=== PATIENT | male | born 1990 | race Caucasian/White ===

== ENCOUNTER 2018-11-07 07:11 | Outpatient (CLI) | payer OTHER ==
--- NOTE | 2018-11-07 09:08 | MRI ---
MRI RIGHT KNEE PERFORMED WITHOUT CONTRAST ENHANCEMENT: HISTORY: Right knee pain for one year. No history of any recent trauma. 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 There is also some internal m ucoid degeneration near the femoral attachment of the posterior cruciate ligament. These changes wit h the posterior cruciate ligament are more prominent than on the prior exam. The lateral meniscus shows some increased signal change near the meniscal root. This is similar to t he previous exam, probably related to some fraying. On the medial side, the body of the medial meniscus is essentially absent. There is a triangular-sha ped density, which is directly superior to the root of the posterior horn of the medial meniscus. Th is appears to represent a displaced flap fragment, probably a flipped fragment that would related to the body of the meniscus. This has a fairly similar appearance to the previous exam. The medial as well as lateral collateral ligaments and iliotibial band regions are unremarkable. The patellar articular cartilage is intact. The medial and lateral patellar retinaculum and quadrice ps and patellar tendons are normal. There is some intraosseous ganglion cyst formation noted in the tibial spine region. IMPRESSION: 1. 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 There has also been development of some internal mucoid degeneration of the more proximal or femoral portion of the posterior cruciate ligament. 2. Severely truncated body of the medial meniscus. This appears to be related to a displaced flap t ear. I believe this tissue is displaced directly superior to the root of the posterior horn. There is also some fraying at the level of the posterior horn of the medial meniscus and also some changes at the posterior horn of the lateral meniscus. POS: [facility]
== END 2018-11-07 07:12 | disposition home or self-care (01) ==
LOC: BICMRI 07:11
PROVIDERS: ATTEND Orthopaedic Surgery
DX: M25.561 Pain in right knee (principal); S83.511A Sprain of anterior cruciate ligament of right knee, initial encounter; S83.521A Sprain of posterior cruciate ligament of right knee, initial encounter

== ENCOUNTER 2018-11-15 08:30 | Day surgery (SDC) | payer OTHER ==
[2018-11-15] MEDS ORDERED: CEFAZOLIN 2 GM/50 ML BAG ONE (09:24)
[2018-11-15] MEDS ORDERED: Fentanyl 100 MCG/2 ML VIAL ONE ×2 (10:46→11:14)
[2018-11-15] MEDS ORDERED: Bupivacaine HCl 0.5%/Epinephrine 1:200,000/PF 30 ml Vial ONE (10:49)
[2018-11-15] MEDS ORDERED: HYDROcodone/Acetaminophen 5/325 mg Tablet ONE (12:19)
--- NOTE | 2018-11-15 12:45 | OP ---
DATE OF PROCEDURE: 11/15/2018 ANESTHESIA: General. PREOPERATIVE DIAGNOSIS: Meniscal tear, right knee. POSTOPERATIVE DIAGNOSIS: Meniscal tear, right knee. PROCEDURE PERFORMED: Arthroscopy of right knee with partial medial meniscectomy. OPERATIVE FINDINGS: Examination under anesthesia revealed the knee to be stable. On arthroscopy, patellofemoral joint, ACL, lateral compartment, lateral meniscus were normal. Examination of medial compartment revealed a significant portion of the medial meniscus had been previously removed, but there was still an intact rim of 3 to 4 mm. There was either a recurrent tear or a retained fragment with a large posterior fragment, which was flipped up and was behind the medial femoral condyle. This was difficult to see. I can only see this through the anteromedial portal because this knee was so tight and could not see from the anterolateral portal. To get to the fragment, it necessitated making an accessory medial portal for the shaver and basket forceps. Satisfactory removal of the fragment was accomplished. DESCRIPTION OF PROCEDURE: After satisfactory anesthesia was induced in supine position, the patient was placed in a leg mccarty, and prepped and draped in routine manner. The right leg was elevated and exsanguinated with an Esmarch bandage and the tourniquet was inflated to 300 mmHg. [place] arthroscope was introduced through the anterolateral portal, probed through an anteromedial portal, and inflow and outflow accomplished through the scope using a [employer] arthroscopy pump. Arthroscopy was carried out and the above findings were noted. All findings were documented with video printer and hard copies were made. The scope was then introduced into the anteromedial portal. The best visualized was the far posterior horn of the medial meniscus. An accessory medial portal was then established for instruments and shaver. The displaced, flipped fragment was then removed with the use of basket forceps and motorized shaver, and the remaining rim shaved appropriate and found to be stable. The knee was then copiously irrigated through the scope and all instruments were then withdrawn. 20 mL of 0.5% Marcaine with epinephrine was instilled into the knee joint and additional 10 mL was injected about the portal sites. The portal sites were closed with 3-0 nylon and a sterile bulky compressive dressing was applied, and the tourniquet deflated after approximately 26 minutes. Foot promptly pinked up. The patient was awakened, taken from the operating room in stable condition. There were no apparent intraoperative complications. The estimated blood loss was negligible. The patient will be discharged home in satisfactory conditions with an ice and elevation, use of crutches, and home exercise program with Physical Therapy Department. He was given written wound care instructions and a prescription for Chambers 7.5 for pain, 40 tablets. He will be rechecked in my office in 10 to 14 days or sooner if there are any problems prior to that time. Job ID: [id number]
[2018-11-15] MEDS ORDERED: Ondansetron PF 4 MG/2 ML Vial ONE (13:27)
[2018-11-15] MEDS ORDERED: Ketorolac Tromethamine 30 MG/ML VIAL ONE (13:27)
[2018-11-15] MEDS ORDERED: PROPOFOL 200 MG/20 ML VIAL ONE (13:27)
[2018-11-15] MEDS ORDERED: Lidocaine 1% PF 5 ML VIAL ONE (13:27)
--- NOTE | 2018-11-15 15:19 | HP ---
HISTORY OF PRESENT ILLNESS: The patient is a 28-year-old male with a several year history of problems with his right knee. He had arthroscopy in [place] 2005 after a football injury. He improved and has had some intermittent problems since that time. He has improved previously with rest, restriction of activities and anti-inflammatory medications and cortisone injection. Over the past year, he has noticed increasing problems with that injury. He describes pain, popping, and sensation of instability, which have persisted despite rest, restriction of activities, and anti-inflammatory medications. 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 PAST MEDICAL HISTORY: The patient has had previous left knee arthroscopy by me with good results without further problems. He is otherwise in good health. He has been taking tramadol and meloxicam for current symptoms. ALLERGIES: HE HAS NO ALLERGIES. FAMILY HISTORY: Otherwise unremarkable. SOCIAL HISTORY: Otherwise unremarkable. REVIEW OF SYSTEMS: Otherwise unremarkable. PHYSICAL EXAMINATION: GENERAL: Reveals a healthy male. HEENT: Unremarkable. NECK: Supple. CHEST: Clear. HEART: Regular rate and rhythm. ABDOMEN: Soft, nontender. RECTAL: Deferred. GENITAL: Deferred. EXTREMITIES: Pertinent findings related to the right knee, there is a 1+ effusion. There is normal alignment. There is no point tenderness. There are healed arthroscopy puncture wounds. Range of motion is 0-120 degrees. There is pain with further flexion and pain with attempted Barbara's maneuver. There is no instability. NEUROVASCULAR: Intact. DIAGNOSTIC STUDIES: X-rays of the knee are normal. MRI scan of the right knee reveals mucoid degeneration of the ACL and some degeneration of the PCL, but no obvious tears. There is a severely truncated body of the medial meniscus which appears related to previous meniscectomy, but there also appears to be a displaced flap in the posterior horn of the meniscus, which apparently represents either retained fragment or recurrent tear. IMPRESSION: Internal derangement of right knee with probably recurrent medial meniscal tear. PLAN: Arthroscopy of right knee with partial medial meniscectomy and/or debridement and shaving. The nature of the surgery, length, recovery, potential complications such as infection, loss of motion, incomplete relief, neurovascular injury, thromboembolic phenomenon, posttraumatic degenerative arthritis, recurrent tear, and need for additional treatment and repeat surgery have been discussed in detail. Job ID: [id number]
== END 2018-11-15 12:59 | disposition home or self-care (01) ==
LOC: SDC 08:30
PROVIDERS: ATTEND Orthopaedic Surgery
PROC: 0SBC4ZZ Excision of Right Knee Joint, Percutaneous Endoscopic Approach (ICD-10-PCS; principal; 2018-11-15)
DX: S83.241A Other tear of medial meniscus, current injury, right knee, initial encounter (principal); Z98.890 Other specified postprocedural states
CPT/HCPCS: J0670; J3010